=== PATIENT | female | born 1960 | race Caucasian/White ===

== ENCOUNTER 2020-08-27 13:12 | Outpatient (CLI) | payer MEDICARE, MEDICAID, SELFPAY ==
--- NOTE | ~2020-08-27 | DEXA_ITS ---
Bone Density Report Name: Shelby Ribera Age: 60 Sex: Female Ethnicity: White Date of : 1960 Indication: postmenopausal; height loss; history of glucocorticoids; prior fracture; asthma or emphysema; Referring Provider: Angelique, Johana Study: Bone densitometry was performed. Exam Date: August 27, 2020 Accession number: [id number] Bone Density: Region BMD T-score Z-score Classification AP Spine (L1-L4) 0.798 -2.3 -0.8 Osteopenia Femoral Neck (Left) 0.522 -3.0 -1.6 Osteoporosis Total Hip (Left) 0.608 -2.7 -1.7 Osteoporosis Total Hip Bilateral Avg 0.604 -2.8 -1.8 Osteoporosis Femoral Neck (Right) 0.513 -3.0 -1.7 Osteoporosis Total Hip (Right) 0.599 -2.8 -1.8 Osteoporosis World Health Organization criteria for BMD impression classify patients as: Normal (T-score at or above -1.0), Osteopenia (T-score between -1.0 and -2.5), or Osteoporosis (T-score at or below -2.5). 10-year Fracture Risk: FRAX not reported because: Some T-score for Spine Total or Hip Total or Femoral Neck at or below -2.5 Clinical Information Provided by Patient: Has had a low trauma fracture Smokes Has taken Glucocorticoids Has used the following medications: Vitamin D Has the following medical conditions: Asthma or Emphysema Patient maximum height was 67 Menopause Age: 54 No regular weight bearing exercise Drinks caffeinated beverages Onset of menses at age 12 Number of children 4 Impression: The patient has established osteoporosis, based on the Left Femoral Neck T-score and the existence of a prior fracture. The patient has risk factors, including: smoking, previous fracture, history of glucocorticoid therapy. Discussion: HIGH RISK OF FRACTURE. BONE DENSITY IS UNDESIRABLY LOW AT ONE OR MORE SKELETAL SITES, CONSISTENT WITH POSTMENOPAUSAL OSTEOPOROSIS. This patient's lowest T-score, in a patient who has previously fractured, meets the World Health Organization's (WHO) criteria for severe osteoporosis. In untreated patients, the risk of osteoporotic fracture increases approximately two-fold for each 1.0 SD decrease in T-score. Low bone density is not the only risk factor for fracture; also consider factors such as patient's age, frailty or poor health, risk of falling, risk of injury, previous osteoporotic fracture, family history of osteoporosis, cigarette smoking, low body weight, etc. Not everyone with low bone mineral density has osteoporosis; osteomalacia and other metabolic bone disorders should also be considered. Patients who have osteoporosis should be evaluated for specific diseases and conditions (secondary causes) that may cause or contribute to bone loss. The [place] Association [employer] Clinical Endocrinologists (AACE) and National Osteoporosis Foundation (NOF) recommend pharmacologic intervention for all postmenopausal women whose T-
== END 2020-08-27 13:13 | disposition home or self-care (01) ==
LOC: ANHIMG 13:20
PROVIDERS: PCP Registered Nurse; Visit Provider Registered Nurse
DX: M81.0 Age-related osteoporosis without current pathological fracture (principal); M85.88 Other specified disorders of bone density and structure, other site
CPT/HCPCS: 77080

== ENCOUNTER 2020-11-01 08:33 | Outpatient (CLI) | payer MEDICARE, MEDICAID, SELFPAY ==
--- NOTE | 2020-11-01 08:45 | ECHO_ITS ---
Patient Info Name: Shelby Ribera Age: 60 years : 1960 Gender: Female Ht: 66 in Wt: 107 lbs BSA: 1.49 m2 HR: 65 bpm BP: 122 / 77 mmHg Heart Rhythm: Sinus Rhythm Technical Quality: Good Exam Date: 11/01/2020 9:03 AM Exam Location: [facility] Patient Status: Outpatient Admit Date: 11/01/2020 Staff Ordering Physician: Indra Fields MD Florist Supplies Salesperson: Rojelio Otero RDCS Attending Provider: Indra Fields MD Referring Physician: Dnonie CHAVEZ; Exam Type: CA echo doppler color flow Study Info Indications R06.02 - Shortness of breath Complete two-dimensional, color flow and Doppler transthoracic echocardiogram is performed. History/Risk Factors Shortness of breath, COPD. Summary 1. Complete two-dimensional, color flow and Doppler transthoracic echocardiogram is performed. 2. Left ventricular chamber dimension is normal. 3. Left ventricular systolic function is normal, estimated at 60-65%. 4. The left ventricular diastolic function is grade I diastolic dysfunction. 5. E/e' 8 is minimally elevated. 6. There is trace mitral valve regurgitation. 7. There is trace tricuspid valve regurgitation. 8. No pulmonary hypertension, estimated pulmonary arterial systolic pressure is 30 mmHg. Left Ventricle E/e' 8 is minimally elevated. Left ventricular chamber dimension is normal. Left ventricular systolic function is normal, estimated at 60-65%. The left ventricular diastolic function is grade I diastolic dysfunction. Right Ventricle Right ventricular chamber dimension is normal. Right ventricular systolic function is normal. Left Atria Left atrial chamber dimension is normal. Right Atria Right atrial chamber dimension is normal. Aortic Valve The aortic valve is trileaflet. There is no aortic valve stenosis. There is no aortic valve regurgitation. Pulmonic Valve There is no pulmonic regurgitation. Mitral Valve There is no mitral valve stenosis. There is trace mitral valve regurgitation. Tricuspid Valve There is trace tricuspid valve regurgitation. No pulmonary hypertension, estimated pulmonary arterial systolic pressure is 30 mmHg. Pericardium/Pleural There is no pericardial effusion. Inferior Vena Cava Normal inferior vena cava with >50% collapse upon inspiration consistent with normal right atrial pressure, 5 mmHg. Aorta The aortic root size at the sinus of Valsalva is normal. Left Ventricular Outflow Tract Name Value Normal LVOT 2D LVOT Diameter 1.9 cm LVOT Doppler LVOT Peak Gradient 2 mmHg LVOT Mean Gradient 1 mmHg LVOT VTI 15 cm LVOT VTI/AV VTI Ratio 0.6 LVOT Stroke Volume 43 ml LVOT CO 2.9 l/min LVOT CI 2.0 l/min/m2 Mitral Valve Name Value Normal
== END 2020-11-01 08:34 | disposition home or self-care (01) ==
PROVIDERS: PCP Registered Nurse; Visit Provider Internal Medicine Critical Care Medicine
DX: J44.9 Chronic obstructive pulmonary disease, unspecified (principal); R06.02 Shortness of breath
CPT/HCPCS: 93306

== ENCOUNTER 2020-12-31 14:34 | Outpatient (CLI) | payer MEDICARE, MEDICAID, SELFPAY | END 2020-12-31 14:35 | disposition home or self-care (01) | LOC: ANHCOVIDVC 14:34 | PROVIDERS: PCP Registered Nurse | DX: Z23 Encounter for immunization (principal) | CPT/HCPCS: 0001A; 91300 ==

== ENCOUNTER 2021-01-21 11:50 | Outpatient (CLI) | payer MEDICARE, MEDICAID, SELFPAY | END 2021-01-21 11:51 | disposition home or self-care (01) | LOC: ANHCOVIDVC 11:50 | PROVIDERS: PCP Registered Nurse | DX: Z23 Encounter for immunization (principal) | CPT/HCPCS: 0002A; 91300 ==

== ENCOUNTER 2021-02-06 08:10 | Outpatient (CLI) | payer MEDICARE, MEDICAID, SELFPAY ==
[2021-02-06 08:45] VITALS: PULSE 78; O2SAT 95
[2021-02-06 08:50] VITALS: PULSE 101; O2SAT 87
[2021-02-06 08:52] VITALS: PULSE 100; O2SAT 90
[2021-02-06 09:00] VITALS: PULSE 80; O2SAT 95
--- NOTE | 2021-02-06 09:11 | HOMEO2EVAL ---
Evaluation was performed at [facility] Home Oxygen Evaluation RC: Home Oxygen (O2) Evaluation Start: 02/06/21 09:06 Freq: Status: Active Protocol: RPE Activity Type Activity Date Activity User E-Sign Co-Sign Detail Recorded Client Recorded Date Recorded By Document 02/06/21 08:45 JAYDEN [email or web address] 02/06/21 09:11 JAYDEN Document 02/06/21 08:50 JAYDEN [email or web address] 02/06/21 09:11 JAYDEN Document 02/06/21 08:52 JAYDEN [email or web address] 02/06/21 09:11 JAYDEN Document 02/06/21 09:00 JAYDEN [email or web address] 02/06/21 09:11 JAYDEN 02/06/21 02/06/21 02/06/21 08:45 08:50 08:52 Home O2 Evaluation Test Phase Resting Exercise Exercise Oxygen Delivery Room Air Room Air Nasal Cannula Oxygen Flow Rate (L/min) 1 Pulse Oximetry (90-100 %) 95 87 L 90 Pulse Rate (60-100 beats/min) 78 101 H 100 Activity Tolerance Excellent Rating of Perceived Dyspnea (PD) +3 Moderate Difficulty, But Can Continue Ambulation Distance (feet) 600 Home Oxygen Evaluation Comments Treatment Charges O2 Evaluation - Outpatient 02/06/21 09:00 Home O2 Evaluation Test Phase Resting Oxygen Delivery Room Air Oxygen Flow Rate (L/min) Pulse Oximetry (90-100 %) 95 Pulse Rate (60-100 beats/min) 80 Activity Tolerance Rating of Perceived Dyspnea (PD) Ambulation Distance (feet) Home Oxygen Evaluation Comments PT REQUIRES 1 LITER O2 WITH EXERTION Treatment Charges
--- NOTE | 2021-02-06 09:11 | PCRCNOTE ---
HOME O2 EVAL FAXED TO OFFICE STAFF. PT STATED SHE HAS BEEN WEARING 2.5 L AT NIGHT, 4 L WITH EXERTION, ROOM AIR AT REST. HAD A POC, BUT BATTERY ALWAYS DIES, WAS NEARLY WHEN SHE GOT HERE AND READY TO TEST. USED OUR TANK. NO WALKING AIDS USED.
== END 2021-02-06 08:11 | disposition home or self-care (01) ==
PROVIDERS: PCP Internal Medicine; Visit Provider Internal Medicine Pulmonary Disease
DX: J44.9 Chronic obstructive pulmonary disease, unspecified (principal)
CPT/HCPCS: 94618

== ENCOUNTER 2021-09-24 08:00 | Outpatient (CLI) | payer MEDICARE, MEDICAID, SELFPAY ==
--- NOTE | ~2021-09-24 | CT_ITS ---
EXAMINATION: CT lung screening DATE: 09/24/2021 09:08 INDICATION: Current smoker. TECHNIQUE: Computed tomography (CT) of the chest was performed without intravenous contrast. The dose -length product was 62.28 mGy-cm. Automated exposure control and iterative reconstruction technique w ere employed. COMPARISON: Chest x-ray dated 06/28/2016 FINDINGS: Heart size is normal. No significant pleural or pericardial effusion. No thoracic lymphaden opathy. Upper abdomen is unremarkable. No significant soft tissue abnormality. No acute osseous abnor mality. There is emphysema. No endobronchial lesions. There is left lower lobe atelectasis. There are a few s mall scattered 2-3 mm nodules, most likely benign. No pneumothorax. No focal airspace consolidation. IMPRESSION: 1. Lung-RADS category 2: Benign appearance or behavior. Continue annual screening with noncontrast lo w-dose chest CT in 12 months. Reviewed, dictated and finalized at location B. DING ATTENDANT IMPRESSION: 1. Lung-RADS category 2: Benign appearance or behavior. Continue annual screeni ng with noncontrast low-dose chest CT in 12 months.
[2021-09-24 08:30] VITALS: PULSE 59; O2SAT 95
[2021-09-24 08:35] VITALS: PULSE 70; O2SAT 86
[2021-09-24 08:40] VITALS: PULSE 72; O2SAT 88
[2021-09-24 08:45] VITALS: PULSE 74; O2SAT 91
[2021-09-24 08:55] VITALS: PULSE 60; O2SAT 94
--- NOTE | 2021-09-24 10:41 | HOMEO2EVAL ---
Evaluation was performed at [facility] Home Oxygen Evaluation RC: Home Oxygen (O2) Evaluation Start: 09/24/21 10:37 Freq: Status: Active Protocol: RPE Activity Type Activity Date Activity User E-Sign Co-Sign Detail Recorded Client Recorded Date Recorded By Document 09/24/21 08:30 DJO [email or web address] 09/24/21 10:40 DJO Document 09/24/21 08:35 DJO [email or web address] 09/24/21 10:40 DJO Document 09/24/21 08:40 DJO [email or web address] 09/24/21 10:40 DJO Document 09/24/21 08:45 DJO [email or web address] 09/24/21 10:40 DJO Document 09/24/21 08:55 DJO [email or web address] 09/24/21 10:40 DJO 09/24/21 09/24/21 09/24/21 08:30 08:35 08:40 Home O2 Evaluation Test Phase Resting Exercise Exercise Oxygen Delivery Room Air Room Air Nasal Cannula Oxygen Flow Rate (L/min) 1 Pulse Oximetry (90-100 %) 95 86 L 88 L Pulse Rate (60-100 beats/min) 59 L 70 72 Activity Tolerance Ambulation Distance (feet) Treatment Charges O2 Evaluation - Outpatient 09/24/21 09/24/21 08:45 08:55 Home O2 Evaluation Test Phase Exercise Resting Oxygen Delivery Nasal Cannula Oxygen Flow Rate (L/min) 2 Pulse Oximetry (90-100 %) 91 94 Pulse Rate (60-100 beats/min) 74 60 Activity Tolerance Good Ambulation Distance (feet) 500 Treatment Charges
== END 2021-09-24 08:01 | disposition home or self-care (01) ==
LOC: ANHPFT 08:02
PROVIDERS: PCP Internal Medicine; Visit Provider Internal Medicine Pulmonary Disease
DX: Z87.891 Personal history of nicotine dependence (principal)
CPT/HCPCS: 71271; 94618

== ENCOUNTER 2022-01-08 09:02 | Outpatient (CLI) | payer MEDICARE, MEDICAID, SELFPAY ==
--- NOTE | ~2022-01-08 | MM_ITS ---
EXAMINATION: MM screening [facility] BI w trever HISTORY: Screening mammogram TECHNIQUE: Craniocaudal and mediolateral oblique 3-D tomosynthesis images were obtained and synthetic 2-D images were generated. CAD analysis was submitted and interpreted. COMPARISON: No prior mammogram is available for comparison at this institution. BREAST PARENCHYMAL COMPOSITION: There are scattered areas of fibroglandular density. FINDINGS: RIGHT BREAST: An asymmetry is present in the middle third of the outer breast on the craniocaudal vie w. LEFT BREAST: Asymmetries are present in the middle third of the central breast on the craniocaudal vi ew. IMPRESSION: 1. Bilateral breast asymmetries which may represent the patient's baseline however no comparison is c urrently available. 2. Comparison with prior mammograms is necessary. BI-RADS Category 0: Incomplete: Needs comparison with prior mammograms. Reviewed, dictated and finalized at location A. IMPRESSION: 1. Bilateral breast asymmetries which may represent the patient's baseline mcnair molly no comparison is currently available. 2. Comparison with prior mammograms is necessary. BI-RADS Category 0: Incomplete: Needs comparison with prior mammograms.
== END 2022-01-08 09:03 | disposition home or self-care (01) ==
PROVIDERS: PCP Nurse Practitioner Family; Visit Provider Nurse Practitioner Family
DX: Z12.31 Encounter for screening mammogram for malignant neoplasm of breast (principal); R92.8 Other abnormal and inconclusive findings on diagnostic imaging of breast
CPT/HCPCS: 77063; 77067

== ENCOUNTER 2022-02-03 07:59 | Outpatient (CLI) | payer MEDICARE, MEDICAID, SELFPAY ==
--- NOTE | 2022-02-03 13:09 | P.PCNPFT_ITS ---
PFT Procedure Performed PFT Procedure Performed Spirometry with Pre/Post Bronchodilator Plethysmography (Lung Vol) Diffusing Cap (DLCO) Flow Vol Loop PFT Interpretation This is a pulmonary function test with pre and post-bronchodilator spirometry, plethysmography and diffusing capacity. The test was performed and results interpreted in accordance with the 2019 and 2005 ATS/ERS Task Force guidelines respectively using the Global Lung Function Initiative-2012 reference equations. Patient demonstrated good effort and cooperation. Reproducibility criteria were met. The quality of the pre bronchodilator spirometry maneuver was Grade A and post bronchodilator spirometry maneuver was Grade A. Findings: Spirometry: There is decreased maximal expiratory airflow at all lung volumes with a concave expiratory flow tracing. The contour the inspiratory flow tracing is normal. The pre bronchodilator FVC is 2.24 L, 70% predicted. The pre bronchodilator FEV1 is 0.66 L, 26% predicted. The pre bronchodilator FEV1: FVC ratio is 30%. The post bronchodilator FVC is 2.44 L, representing a 9% increase. The post bronchodilator FEV1 is 0.76 L, representing a 100 mL increase which corresponds to a 14% increase. The post bronchodilator FEV1: FVC ratio is 31%. Plethysmography: The total lung capacity is 7.75 L, 149% predicted. The functional residual capacity is 6.96 L, 236% predicted. The residual volume is 4.96 L the, 239% predicted. Diffusion capacity: The diffusing capacity unadjusted for hemoglobin and carboxyhemoglobin is 6.4, 30% predicted. The diffusing capacity adjusted for alveolar volume is 2.21, 51% predicted. Impression: There is a very severe obstructive abnormality without significant i mprovement after inhaling a single dose of albuterol as the absolute increase in the post bronchodilator FEV1 was less than 200 mL. The increase in residual volume is consistent with air trapping from an obstructive abnormality. Hyperinflation is present is demonstrated by the increase in functional residual capacity and total lung capacity and is consistent with an obstructive abnormality. The diffusing capacity unadjusted for hemoglobin and carboxyhemoglobin is severely decreased and remains moderately decreased when adjusted for alveolar volume. There are no prior studies in our lab for comparison
== END 2022-02-03 08:00 | disposition home or self-care (01) ==
LOC: ANHPFT 08:00
PROVIDERS: PCP Nurse Practitioner Family; Visit Provider Internal Medicine Pulmonary Disease
DX: R06.00 Dyspnea, unspecified (principal); R94.2 Abnormal results of pulmonary function studies
CPT/HCPCS: 94060; 94726; 94729

== ENCOUNTER 2022-02-24 07:17 | Outpatient (CLI) | payer MEDICARE, MEDICAID, SELFPAY ==
--- NOTE | 2022-03-03 18:03 | WPDSLEEPSTUD ---
Sleep Study Date of Study: 02/24/22 Ordering Provider: Santos Reza MD Interpreting Physician: Nydia Nickerson DO Sleep Study Type: Split Polysomnogram Height: 1.68 m Weight: 48.988 kg Body Mass Index: 17.4 Neck Circumference (inches): 13.8 [place]: 9 Reason for Sleep Study Nocturnal hypoxemia Sleep History The patient is a 61-year-old female with COPD with oxygen dependence, anxiety, osteoporosis, depression, and tobacco abuse that had a sleep study ordered by her senior inspector. the patient states that she has an upcoming lung transplant. The patient frequently awakens from sleep short breath. She frequently awakens at night with heartburn, belching or cough. She frequently snores loud enough others complain. He frequently has trouble sleeping when she has a cold. She rarely wakes gasping for air for throughout the night. She frequently has breathing problems at night observed by herself or others. She rarely sweats excessively at night. She rarely has heart palpitations or irregular heartbeats during the night. She occasionally falls asleep during the day but never while driving. She denies sleep paralysis and cataplexy. She frequently experiences vivid dreamlike scenes upon awakening or falling asleep. She rarely has nightmares. She frequently remembers her dreams. She occasionally has thoughts racing through her mind. She occasionally feels sad or depressed. She frequently has anxiety. She frequently has muscular tension. She rarely notices parts of her body jerk. She frequently kicks during the night. She occasionally has crawling and aching feelings in her legs. She occasionally has leg pain during the night. She rarely grinds her teeth during sleep but constantly awakens morning jaw pain. He is rarely bothered by pain during the day but occasionally awakened by pain during the night. She occasionally wakes up feeling stiff in. She frequently wakes up with sore achy muscles. She constantly wakes up with pain in the neck, spine and other joints. She goes to bed between 6 and 7:00 p.m. on both weekdays and weekends. It takes her 10-15 minutes to fall asleep. She wakes up 5 times throughout the night to urinate. The patient will get up and start her day whenever she wakes. She wakes up around 4:00 a.m. on both weekdays and weekends. She currently lives alone. She will consume caffeinated beverages within 2 hours of bedtime. She does not engage in physical exercise before bedtime. She will read and watch television before falling asleep. She drinks 6 caffeinated beverages throughout the day. She quit smoking cigarettes 11 months ago. She denies alcohol and recreational drug use. [facility] Past Medical History Medical History Anxiety COPD (chronic obstructive pulmonary disease) Emphysema of lung Osteoporosis Severe chronic obstructive pulmonary disease Surgical History Surgical History H/O breast biopsy H/O hernia repair H/O shoulder surgery History of appendectomy History of ear surgery Hx of tonsillectomy S/P laparoscopic procedure Family History Family History Mother COPD (chronic obstructive pulmonary disease) CHF (congestive heart failure) Emphysema of lung Father COPD (chronic obstructive pulmonary disease) Other Alzheimer disease Social History Social History Smoking packs per day: 0.50 Smoking cigarettes per day: 10.0 Years smoked: 45 Smoking pack-years: 22.50 Smoking status: Former smoker Tobacco type: cigarettes Alcohol intake: current Medications Home Medications Medication Instructions Recorded Confirmed Type albuterol sulfate 90 mcg/actuation 1 puff INHALATION Q4H PRN 08/08/20 12/30/21 History aerosol inhaler albute
[2022-03-03 18:10] VITALS: BMI 17.4
== END 2022-02-25 05:38 | disposition home or self-care (01) ==
LOC: ANHCSM 07:18
PROVIDERS: PCP Nurse Practitioner Family; Visit Provider Internal Medicine Pulmonary Disease
DX: G47.10 Hypersomnia, unspecified (principal); G47.34 Idiopathic sleep related nonobstructive alveolar hypoventilation; G47.33 Obstructive sleep apnea (adult) (pediatric)
CPT/HCPCS: 95811

== ENCOUNTER 2022-03-05 12:40 | Outpatient (CLI) | payer MEDICARE, MEDICAID, SELFPAY ==
[2022-03-05 13:11] LABS: Alveolar/Arterial O2 Gradient 45.7 mmHg; Base Excess ABG -0.2 mEq/l (+/-2.0); Carboxyhemoglobin 3.9 % THb (0-2.0); Fractional Inspired Oxygen 21 %; Methemoglobin ABG 0.2 %THb (0-1.5); Oxygen Content ABG 17.8 %vol (16.0-22.0); Oxygen Saturation ABG 93.6 % (95.0-100.0); PCO2 ABG 33.5 mmHg (35.0-45.0); PO2 ABG 63.9 mmHg (80.0-100.0); PO2 FiO2 Ratio Arterial Blood 3.04 %; Reduced Hemoglobin 6.9 %THb (0-5.0); Total Hemoglobin 14.2 g/dL (12.0-18.0); pH ABG 7.455 (7.350-7.450)
[2022-03-05 13:12] LABS: Device ROOM AIR; Site Drawn RIGHT BRACHIAL
--- NOTE | 2022-03-05 14:09 | PCRCNOTE ---
FAXED ABG RESULTS TO OFFICE STAFF, COPY ON FILE IN PFT LAB
== END 2022-03-05 12:41 | disposition home or self-care (01) ==
PROVIDERS: PCP Nurse Practitioner Family; Visit Provider Internal Medicine Pulmonary Disease
DX: J44.9 Chronic obstructive pulmonary disease, unspecified (principal)
CPT/HCPCS: 36600; 82375; 82805; 83050

== ENCOUNTER 2022-09-30 12:14 | Outpatient (CLI) | payer MEDICARE, MEDICAID, SELFPAY ==
--- NOTE | ~2022-09-30 | CT_ITS ---
EXAMINATION: CT lung screening DATE: 09/30/2022 12:33 INDICATION: Lung cancer screening TECHNIQUE: Computed tomography (CT) of the chest was performed without intravenous contrast. The dose -length product was 65.27 mGy-cm. Automated exposure control and iterative reconstruction technique w ere employed. COMPARISON: CT dated 09/24/2021 FINDINGS: No thoracic lymphadenopathy. There is mild atherosclerosis. Heart size normal. No significa nt pleural or pericardial effusion. There is severe emphysema. There is chronic left lower lobe atele ctasis/scarring. There is an irregular shaped 3 mm nodule in the left upper lobe, unchanged. There is a 2 mm left upper lobe nodule unchanged. There are a few additional small 2-3 mm nodules which are n ot significantly changed. Stable mild superior endplate compression deformity of T9. No acute bone or joint abnormality. No focal lytic lesions. IMPRESSION: 1. . Lung-RADS category 2: Benign appearance or behavior. Continue annual screening with noncontrast low-dose chest CT in 12 months. Reviewed, dictated and finalized at location A. TER ASSISTANT IMPRESSION: 1. . Lung-RADS category 2: Benign appearance or behavior. Continue annual scree jamaal with noncontrast low-dose chest CT in 12 months.
== END 2022-09-30 12:15 | disposition home or self-care (01) ==
LOC: ANHIMG 12:16
PROVIDERS: PCP Family Medicine; Visit Provider Internal Medicine Pulmonary Disease
DX: Z12.2 Encounter for screening for malignant neoplasm of respiratory organs (principal); Z87.891 Personal history of nicotine dependence
CPT/HCPCS: 71271

== ENCOUNTER 2023-03-09 09:30 | Outpatient (CLI) | payer MEDICARE, MEDICAID, SELFPAY ==
--- NOTE | ~2023-03-09 | MM_ITS ---
EXAMINATION: MM screening [facility] BI w trever HISTORY: Screening mammogram TECHNIQUE: Craniocaudal and mediolateral oblique 3-D tomosynthesis images were obtained and synthetic 2-D images were generated. CAD analysis was submitted and interpreted. COMPARISON: 01/08/2022, 10/16/2019, 10/14/2018 BREAST PARENCHYMAL COMPOSITION: There are scattered areas of fibroglandular density. FINDINGS: No suspicious mass, calcification, or architectural distortion are identified in either jamal ast to suggest malignancy. There has been no suspicious interval change. IMPRESSION: 1. No mammographic evidence of malignancy. 2. Recommend routine screening mammography in one year. BI-RADS Category 1: Negative Reviewed, dictated and finalized at location A.
== END 2023-03-09 09:31 | disposition home or self-care (01) ==
PROVIDERS: PCP Family Medicine; Visit Provider Family Medicine
DX: Z12.31 Encounter for screening mammogram for malignant neoplasm of breast (principal)
CPT/HCPCS: 77063; 77067

== ENCOUNTER 2023-04-06 14:47 | Outpatient (CLI) | payer MEDICARE, MEDICAID, SELFPAY ==
--- NOTE | ~2023-04-06 | CT_ITS ---
EXAMINATION: CT diagnostic chest wo con DATE: 04/06/2023 15:13 INDICATION: Solitary pulmonary nodule TECHNIQUE: Computed tomography (CT) of the chest was performed without intravenous contrast. The dose -length product was 58.87 mGy-cm. Automated exposure control and iterative reconstruction technique w ere employed. COMPARISON: CT dated 09/30/2022 FINDINGS: There is emphysema. There is a new 1.5 x 0.8 cm nodule left upper lobe, image 21. No pneumo thorax. No endobronchial lesions. Stable small 2-3 mm scattered pulmonary nodules. No thoracic lympha denopathy. Heart size normal. Mild superior endplate compression deformity of 9. Mild thoracic spondy losis. IMPRESSION: 1. New left upper lobe nodule measuring 1.5 cm, suspicious for bronchogenic carcinoma. Recommend perc utaneous biopsy or pet/CT scan. Reviewed, dictated and finalized at location [] IMPRESSION: 1. New left upper lobe nodule measuring 1.5 cm, suspicious for bronchogenic car cinoma. Recommend percutaneous biopsy or pet/CT scan.
== END 2023-04-06 14:48 | disposition home or self-care (01) ==
PROVIDERS: PCP Family Medicine; Visit Provider Internal Medicine Pulmonary Disease
DX: R91.1 Solitary pulmonary nodule (principal)
CPT/HCPCS: 71250

== ENCOUNTER 2023-04-26 10:27 | Emergency (ER) | payer MEDICARE, MEDICAID, SELFPAY ==
--- NOTE | 2023-04-26 10:32 | ED.GENADULT ---
HPI - General Adult General Chief complaint: Upper Respiratory Infection Stated complaint: Headache Time Seen by Provider: 04/26/23 10:35 Source: patient, RN notes reviewed and old records reviewed Mode of arrival: ambulatory Limitations: no limitations History of Present Illness HPI narrative: 63-year-old female with a significant medical history including Skin cancer, COPD, having a lung biopsy to rule out lung cancer, anxiety. presents to the [facility] with left-sided headache x3 days. Patient states the pain is 8/10, worst headache of her life which she is taking Tylenol, Excedrin, slept yesterday in a cool dark room. Unable to get rid of the headache. Denies any fevers, nausea, vomiting, diarrhea. Denies any chest pain or abdominal pain. Has chronic weakness in her arms that she has seat physical therapy for. Currently on exam no neurologic deficits Unable to reproduce pain with palpation of the left head, sinus Onset (ago): day(s) (3) Location: head (Left-sided) Related Data Allergies Allergy/AdvReac Type Severity Reaction Status Date / Time codeine AdvReac Intermediate Nausea Verified 04/26/23 10:52 Penicillins AdvReac Intermediate Nausea and Verified 04/26/23 10:52 Vomiting erythromycin base AdvReac Itching Verified 04/26/23 10:52 Review of Systems Review of Systems: All systems reviewed & are unremarkable except as noted in HPI and below Constitutional: Constitutional: Reports no additional constitutional complaints Eyes: Eyes: Reports no additional eye complaints ENT: Reports system reviewed and no additional complaints, except as documented Cardiovascular: Cardiovascular: Reports no additional cardiovascular complaints, Denies chest pain and Denies dyspnea Respiratory: Respiratory: Reports no additional respiratory complaints, Denies chest congestion, Denies cough and Denies dyspnea Gastrointestinal: Gastrointestinal: Reports no additional gastrointestinal complaints, Denies abdominal pain, Denies nausea and Denies vomiting Musculoskeletal: Musculoskeletal: Reports no additional musculoskeletal complaints Integumentary/Breasts: Skin/Breast: Reports system reviewed and no additional complaints, except as docu Neurologic: Reports as per HPI, Denies Neuro-related abnormal movements, Denies Abnormal speech present, Denies dizziness, Denies syncope, Reports headache(s), Denies focal weakness, Denies loss of vision, Denies memory loss, Denies numbness, Reports tingling and Reports paresthesias Psychiatric: Psychiatric: Reports no additional psychiatric complaints Allergic/Immunologic: Allergic/Immunologic: Reports no additional allergic/immunologic complaints [facility] Past Medical History Medical History (Updated 04/26/23 @ 11:12 by Tanisha Tinoco APRN) Anxiety Cholesteatoma left ear per patient COPD (chronic obstructive pulmonary disease) Emphysema of lung Osteoporosis Severe chronic obstructive pulmonary disease Surgical History Surgical History H/O breast biopsy H/O hernia repair H/O shoulder surgery History of appendectomy History of ear surgery Hx of tonsillectomy S/P laparoscopic procedure Family History Family History Mother COPD (chronic obstructive pulmonary disease) CHF (congestive heart failure) Emphysema of lung Father COPD (chronic obstructive pulmonary disease) Other Alzheimer disease Social History Social History Smoking packs per day: 0.50 Smoking cigarettes per day: 10.0 Years smoked: 45 Smoking pack-years: 22.50 Smoking status: Former smoker Tobacco type: cigarettes Alcohol intake: current Substance use: never Living arrangements: alone Occupation/Education: retired Gender identity (if verbalized by the patient): Female Comments At the time of my signature, I reviewed and agre
[2023-04-26 10:35] VITALS: BP 137/69; PULSE 78; RESP 18; TEMP 36.5; O2SAT 92
== END 2023-04-26 10:55 | disposition short-term general hospital (02) ==
LOC: EXPTROY 10:29
PROVIDERS: Emergency Provider Nurse Practitioner; PCP Family Medicine
DX: R51.9 Headache, unspecified (principal); J44.9 Chronic obstructive pulmonary disease, unspecified; Z85.828 Personal history of other malignant neoplasm of skin
CPT/HCPCS: 99212; G0463

== ENCOUNTER 2023-04-26 11:13 | Emergency (ER) | payer MEDICARE, MEDICAID, SELFPAY ==
--- NOTE | ~2023-04-26 | CT_ITS ---
EXAMINATION: CT brain wo con DATE: 04/26/2023 11:37 INDICATION: Left-sided temporal headache. TECHNIQUE: Computed tomography (CT) of the head was performed without intravenous contrast. The mA wa s adjusted according to patient size. Iterative reconstruction technique was employed. The dose-lengt h product was 681.00 mGy-cm. COMPARISON: Head CT 06/28/2016 FINDINGS: There is no intracranial hemorrhage, acute infarction, or abnormal intracranial mass lesion . The ventricles are normal in size. The orbits are normal. There is mild mucosal thickening in the p aranasal sinuses. There are changes of left mastoidectomy. IMPRESSION: 1. Normal brain. Reviewed, dictated and finalized at location A. IMPRESSION: 1. Normal brain.
[2023-04-26 11:19] VITALS: BP 143/77; PULSE 77; RESP 16; TEMP 36.8; O2SAT 94
--- NOTE | 2023-04-26 12:16 | ED.GENADULT ---
HPI - General Adult General Chief complaint: Headache Stated complaint: left temporal headache Time Seen by Provider: 04/26/23 11:21 Source: patient Mode of arrival: ambulatory Limitations: no limitations History of Present Illness HPI narrative: This is a 63-year-old female who presents to the ED from urgent care referral with chief complaint of left-sided headache beginning 3 days ago. She states that she does not have headaches very often. She reports it is located in the left temporal area and radiates somewhat posteriorly. Denies any associated head injury. Denies numbness, weakness, other neurologic symptoms. Denies vision changes, fevers, chills, neck pain or stiffness. Denies thunderclap onset. Related Data Allergies Allergy/AdvReac Type Severity Reaction Status Date / Time codeine AdvReac Intermediate Nausea Verified 04/26/23 12:22 Penicillins AdvReac Intermediate Nausea and Verified 04/26/23 12:22 Vomiting erythromycin base AdvReac Itching Verified 04/26/23 12:22 [facility] Past Medical History Medical History (Updated 04/26/23 @ 13:43 by Bobby Cardoso PA-C) Anxiety Cholesteatoma left ear per patient COPD (chronic obstructive pulmonary disease) Emphysema of lung Osteoporosis Severe chronic obstructive pulmonary disease Surgical History Surgical History H/O breast biopsy H/O hernia repair H/O shoulder surgery History of appendectomy History of ear surgery Hx of tonsillectomy S/P laparoscopic procedure Family History Family History Mother COPD (chronic obstructive pulmonary disease) CHF (congestive heart failure) Emphysema of lung Father COPD (chronic obstructive pulmonary disease) Other Alzheimer disease Social History Social History Smoking packs per day: 0.50 Smoking cigarettes per day: 10.0 Years smoked: 45 Smoking pack-years: 22.50 Smoking status: Former smoker Tobacco type: cigarettes Alcohol intake: current Substance use: never Living arrangements: alone Occupation/Education: retired Gender identity (if verbalized by the patient): Female Exam Narrative: GENERAL: Well-appearing, well-nourished, and in no acute distress. HEAD: Normocephalic, atraumatic. Palpating the left temporal area relieves her pain. EYES: PERRLA and EOMI. ENT: Nares clear, no rhinorrhea or epistaxis. Mucous membranes moist. Oropharynx without tonsillar hypertrophy exudate or other lesions. NECK: Supple. No adenopathy or masses. CHEST: No respiratory distress. Clear to auscultation. No wheezes rales or rhonchi HEART: Regular rate and rhythm. No murmur heard. Normal peripheral pulses. ABDOMEN: Soft, nontender, nondistended, normal active bowel sounds. MSK: Normal range of motion. No edema. SKIN: Warm, dry, no rash. NEURO: Alert and oriented x3. No focal deficits. PSYCH: Normal mood and affect. Course Vital Signs Vital signs: Vital Signs Temperature 98.2 F 04/26/23 11:19 Pulse Rate 77 04/26/23 11:19 Respiratory Rate 16 04/26/23 11:19 Blood Pressure 143/77 H 04/26/23 11:19 Pulse Oximetry 94 04/26/23 11:19 Temperature 98.2 F 04/26/23 11:19 Pulse Rate 66 04/26/23 13:25 Respiratory Rate 17 04/26/23 13:25 Blood Pressure 125/72 04/26/23 13:25 Pulse Oximetry 97 04/26/23 13:25 Medical Decision Making MDM Narrative Medical decision making narrative: This is a 63-year-old female who presents to the ED with chief complaint of left-sided headache beginning 3 days ago. Vitals are normal. Exam is unremarkable. Neurologic exam fully intact. Palpation of the left denominational actually helps relieve her headache. CT of the brain is without acute findings. No masses. She has no red flag headache signs or symptoms other than age. Great symptomatic improvement with fluids and Toradol
[2023-04-26] MEDS: SODIUM CHLORIDE 0.9% IV 1,000 ML 999 ML IV CONT (12:25)
[2023-04-26] MEDS: KETOROLAC 30 MG/ML VIAL (*BKC) IV PUSH (12:25)
[2023-04-26 12:34] LABS: Basophils Absolute Auto 0.1 K/mm3 (0.0-0.1); Basophils Percent Auto 1.1 % (0.2-1.2); Eosinophils Absolute Auto 0.4 K/mm3 (0-0.3); Eosinophils Percent Auto 5.3 % (0-4.4); Hemoglobin 13.2 g/dL (12.0-15.0); Immature Granulocyte Absolute 0.02 K/mm3 (0.00-0.031); Immature Granulocyte Percent A 0.2 % (0-0.5); Lymphocytes Absolute Auto 2.92 K/mm3 (0.9-3.2); Lymphocytes Percent Auto 36.1 % (18.3-44.2); Mean Corpuscular Hemoglobin 30.2 pg (26-34); Mean Corpuscular Volume 91.5 fl (80-100); Mean Platelet Volume 10.3 fl (7.4-10.4); Monocytes Absolute Auto 0.7 K/mm3 (0.1-0.6); Monocytes Percent Auto 8.7 % (2.6-8.5); Neutrophils Absolute Auto 3.9 K/mm3 (1.3-6.7); Neutrophils Percent Auto 48.6 % (45.5-73.1); Platelet Count Result 275 k/mm3 (150-375); Red Blood Count 4.37 M/mm3 (4.2-5.4); Red Cell Distribution Width 13.6 % (11.5-14.5); White Blood Count 8.1 K/mm3 (4.5-10.0)
[2023-04-26 12:48] LABS: Alanine Aminotransferase 16 U/L (6-35); Albumin Level 3.8 g/dL (3.5-5.1); Alkaline Phosphatase 50 U/L (38-126); Anion Gap 5 mmol/L (8-16); Aspartate Amino Transferase 23 U/L (14-36); Bilirubin,Total 0.4 mg/dL (0.2-1.3); Blood Urea Nitrogen 6 mg/dL (7-17); Calcium 8.3 mg/dL (8.4-10.2); Carbon Dioxide 33 mmol/L (22-30); Chloride 103 mmol/L (98-107); Estimated CRCL calculation 60 ml/min; Estimated Glomerular Filt Rate > 60; Glucose 87 mg/dL (65-110); Potassium 3.9 mmol/L (3.4-5.0); Sodium 141 mmol/L (137-145)
[2023-04-26 13:25] VITALS: BP 125/72; PULSE 66; RESP 17; O2SAT 97
== END 2023-04-26 14:00 | disposition home or self-care (01) ==
PROVIDERS: Emergency Provider Physician Assistant; PCP Family Medicine
DX: R51.9 Headache, unspecified (principal); J43.9 Emphysema, unspecified; M81.0 Age-related osteoporosis without current pathological fracture; Z87.891 Personal history of nicotine dependence
CPT/HCPCS: 36415; 70450; 80053; 85025; 96361; 96374; 99284; J1885; J7030

== ENCOUNTER 2023-05-04 08:47 | Outpatient (CLI) | payer MEDICARE, MEDICAID, SELFPAY ==
[2023-04-26 10:54] VITALS: BMI 17.4
--- NOTE | 2023-04-26 10:54 | PC.NURSE ---
Pre Radiology instructions Report to the outpatient [facility] on date 05/04/23 at time 0900 for procedure Time: 1100. YOU MAY BE MONITORED AT HOSPITAL FOR UP TO 4 HOURS AFTER YOUR PROCEDURE. A visitor will be allowed to accompany the patient into the hospital. You and your visitor will be asked to self-screen and do not enter if you have any COVID symptoms. A mask is OPTIONAL within the hospital. Patients are to have no food or drink 6 hours prior to procedure time Driving will be restricted after the procedure, you must have a person to drive you home. Labs will be drawn in preop area and once reviewed, you will be taken to radiology area for procedure. When the procedure is completed, you will be taken to outpatient where you will be monitored for several hours. You may have one visitor in this area. Other than holding anti-coagulants, patient may take other medication(s) as scheduled. Prior to your appointment date patients are instructed to hold anti-coagulants after discussing with ordering provider to stop. If unable to discontinue anti-coagulants please notify radiologist. ? No aspirin or warfarin (Coumadin) for 7 days prior to the procedure. ? No clopidogrel (Plavix), ticagrelor (Brilinta), prasugrel (Effient) or dabigatran (Pradaxa) for 5 days prior to the procedure. ? No rivaroxaban (Xarelto), apixaban (Eliquis), dipyridamole (Aggrenox or Persantine) or cilostazol (Pletal) for 2 days prior to the procedure. Medications to discontinue per physician: N/A Date to take last dose: N/A Please leave all valuables, including medications, at home the day of procedure. The hospital will not accept responsibility for valuables. Wear comfortable, loose fitting clothing.? Follow any additional instructions given to you from ordering provider. Telephone instructions given to KEATON JACKKILala HIDALGO and asked if any additional questions and then verbalized understanding. Patient advised to call scheduling provider office or registration scheduling [phone] if any additional questions.
[2023-05-04] VITALS (12 sets, daily range): BP systolic 80–139; BP diastolic 45–88; PULSE 57–86; RESP 16–20; TEMP 37.1; O2SAT 90–100
--- NOTE | ~2023-05-04 | XR_ITS ---
EXAMINATION: XR chest 1V portable DATE: 05/04/2023 12:46 INDICATION: Pneumothorax post percutaneous left lung biopsy. TECHNIQUE: frontal view of the chest was obtained. COMPARISON: Chest radiograph dated 05/04/2023 at 12:05 PM FINDINGS: Emphysema. Some skin folds project over the lateral left mid to lower lung zones. Again seen is a sma ll left apical pneumothorax which does not appear changed in size since the earlier study. Some of th e pulmonary hemorrhage in the left upper lobe has decreased. No new airspace opacities, pleural effus ion or right-sided pneumothorax. Heart size is normal. Lateral plate and screw fixation of an old fra cture at the left humeral neck. IMPRESSION: 1. Unchanged small iatrogenic left apical pneumothorax. 2. Interval decrease in small amount of post biopsy pulmonary hemorrhage in the left upper lobe. Reviewed, dictated and finalized at location A.
--- NOTE | ~2023-05-04 | XR_ITS ---
EXAMINATION: XR chest 1V portable DATE: 05/04/2023 14:26 INDICATION: Pneumothorax post percutaneous left lung biopsy TECHNIQUE: frontal view of the chest was obtained. COMPARISON: Chest radiograph dated 05/04/2023 at 12:36 PM and 12:05 PM FINDINGS: Interval decrease in size of a small left apical pneumothorax. Mild opacities in the left upper lung zone corresponding to the biopsied nodule, mild associated atelectasis and small amount of postbiopsy pulmonary hemorrhage. No other airspace opacities, pleural effusion or right-sided pneumothorax. Hea rt size and mediastinal silhouette are normal. Internal fixation of a proximal left humeral fracture. IMPRESSION: 1. Decreasing small left apical pneumothorax with mild atelectasis and likely small amount of residua l pulmonary hemorrhage in the left upper lobe. Reviewed, dictated and finalized at location A. IMPRESSION: 1. Decreasing small left apical pneumothorax with mild atelectasis and likely s mall amount of residual pulmonary hemorrhage in the left upper lobe.
--- NOTE | ~2023-05-04 | CT_ITS ---
EXAMINATION: CT biopsy lung w/imaging DATE: 05/04/2023 12:08 INDICATION: Solitary left upper lobe pulmonary nodule TECHNIQUE: The procedure including the risks and benefits was discussed with the patient. Risks discu ssed included infection, approximately 1/20 risk of symptomatic hemorrhage beyond mild hemoptysis, ap proximately 1/3 risk of pneumothorax, and approximately 1/10 risk of pneumothorax severe enough to wa rrant chest tube placement. The patient understood the risks and agreed to proceed. The patient was p laced prone. The skin overlying the paraspinal right posterior chest was prepped and draped in steri le fashion. Anesthetic was administered with 1% lidocaine subcutaneously. A 19 gauge outer needle w as advanced under CT guidance to the lesion of interest. A 20 gauge core biopsy needle was then used to obtain 5 core biopsy specimens. The needle was removed and the entry site was cleaned and dressed. There were no immediate complications. The dose-length product was 111.33 mGy-cm. FINDINGS: CT images demonstrate the outer needle tip adjacent to a 1.3 cm right upper lobe pulmonary nodule. IMPRESSION: 1. Successful CT-guided biopsy of a 1.3 cm right upper lobe pulmonary nodule. Reviewed, dictated and finalized at location A.
--- NOTE | ~2023-05-04 | XR_ITS ---
Portable chest x-ray Comparison: 06/28/2016 Clinical History: Postbiopsy Findings: There is left apical pneumothorax. Patchy airspace disease in the left upper lobe is paula tible with postbiopsy hemorrhage. Right lung clear. There is probable underlying COPD. Cardiomediast inal silhouette is stable. Bones and soft tissues are unremarkable. Impression: Left apical pneumothorax. Postbiopsy hemorrhage in the left upper lobe. Reviewed, dictated and finalized at location . Impression: Left apical pneumothorax. Postbiopsy hemorrhage in the left upper lobe.
--- NOTE | ~2023-05-04 | XR_ITS ---
EXAMINATION: XR chest 1V portable DATE: 05/04/2023 15:47 INDICATION: Left pneumothorax post percutaneous left lung biopsy. TECHNIQUE: frontal view of the chest was obtained. COMPARISON: Chest radiograph dated 05/04/2023 at 2:23 PM FINDINGS: Continued gradual decrease in size of a small left apical pneumothorax. Mild opacities in the left up per lobe likely representing associated atelectasis as well as the biopsied pulmonary nodule. No new airspace opacities, pleural effusion or right-sided pneumothorax. The cardiomediastinal silhouette is normal. Internal fixation of a proximal left humeral fracture. IMPRESSION: 1. Continued decrease in a small iatrogenic left apical pneumothorax post. These biopsy of a left upp er lobe nodule which is concerning for malignancy. Reviewed, dictated and finalized at location A. IMPRESSION: 1. Continued decrease in a small iatrogenic left apical pneumothorax post. Thes e biopsy of a left upper lobe nodule which is concerning for malignancy.
[2023-05-04 09:26] LABS: Mean Platelet Volume 10.6 fl (7.4-10.4); Platelet Count Result 321 k/mm3 (150-375)
[2023-05-04 09:41] LABS: Prothrombin Time 13.4 Seconds (11.1-14.7)
[2023-05-04] MEDS: LACTATED RINGERS 1,000 ML 999 ML IV CONT (12:30)
--- NOTE | 2023-05-04 12:46 | SUR.PHASEII ---
1220 dr rodriguez called to bedside due to patient being hypotensive(80/45) and feeling hot. order given to hand lactated ringers wide open for bp. fan placed on patient feeling better. pt has a small pneumothorax 1230 bp(100/63) on 2L nc-95% 1235 chest xray done per dr rodriguez
[2023-05-04] MEDS: MORPHINE SULFATE (*CRX) 4 MG/ML INJ 1 MG IV PUSH (13:29)
--- NOTE | 2023-05-04 17:31 | SUR.PHASEII ---
1600 dr rodriguez at bedside to talk to patient and family. chest xray is better, okay for discharge per dr rodriguez
== END 2023-05-04 16:15 | disposition home or self-care (01) ==
PROVIDERS: PCP Family Medicine; Referring Provider Internal Medicine Pulmonary Disease; Visit Provider Radiology Diagnostic Radiology
PROC: BB24ZZZ Computerized Tomography (CT Scan) of Bilateral Lungs (ICD-10-PCS; CPT 32408; principal; 2023-05-04 11:00)
DX: R91.1 Solitary pulmonary nodule (principal)
CPT/HCPCS: 32408; 36415; 71045; 85049; 85610; 88305; J2270; J7120

== ENCOUNTER 2023-05-06 17:03 | Emergency (ER) | payer MEDICARE, MEDICAID, SELFPAY ==
[2023-05-06] VITALS (24 sets, daily range): BP systolic 95–130; BP diastolic 47–105; PULSE 61–86; RESP 11–28; TEMP 36.6; O2SAT 87–100
--- NOTE | ~2023-05-06 | XR_ITS ---
EXAMINATION: XR chest 2V DATE: 05/06/2023 18:48 INDICATION: Hemoptysis. TECHNIQUE: Frontal and lateral views of the chest were obtained. COMPARISON: Chest single view 05/04/2023, CT 05/04/2023 FINDINGS: The lungs are hyperexpanded with lucencies, consistent with emphysema. There is a nodule in left lung upper lobe. There are reticular opacities in left upper lobe. There is a small left pneumo thorax. There is a small left pleural effusion. The heart size is normal. There is plate and screw fi xation of proximal left humerus. IMPRESSION: 1. Nodule in left lung upper lobe suspicious for primary bronchogenic carcinoma. 2. Stable small left pneumothorax. 3. Interstitial opacities in left lung upper lobe with interval improvement, consistent with hemorrha ge. 4. Small left pleural effusion. 5. Emphysema. Reviewed, dictated and finalized at location E. IMPRESSION: 1. Nodule in left lung upper lobe suspicious for primary bronchogenic carcinoma . 2. Stable small left pneumothorax. 3. Interstitial opacities in left lung upper lobe with interval improvement, co nsistent with hemorrhage. 4. Small left pleural effusion. 5. Emphysema.
--- NOTE | ~2023-05-06 | CT_ITS ---
EXAMINATION:CT diagnostic chest w con DATE: 05/06/2023 22:48 INDICATION: Hemoptysis. TECHNIQUE: Computed tomography (CT) of the chest was performed with 75 mL Omnipaque 350 intravenous c ontrast. Automated exposure control and iterative reconstruction technique were employed. The dose-le ngth product (DLP) was 137.74 mGy-cm. COMPARISON: Chest CT 04/06/2023, 05/04/2023 FINDINGS: There is severe emphysema. There is a small left hydropneumothorax. There is mild atelectas is bilaterally. There is a 13 mm nodule in left lung upper lobe. There are reticular opacities and ai rspace opacities in left upper lobe. The heart size is normal. There is a small pericardial effusion. There is an 8 mm cyst in the liver. There is severe cervical spondylosis and mild thoracic spondylos is. There is mild chronic anterior wedging of T9 vertebral body. IMPRESSION: 1. 13 mm nodule in left lung upper lobe suspicious for primary bronchogenic carcinoma. Correlate with biopsy results. 2. Small left hydropneumothorax. 3. Airspace opacities and reticular opacities in left lung upper lobe, consistent with postbiopsy hem orrhage. 4. Severe emphysema. 5. Small pericardial effusion. Reviewed, dictated and finalized at location E. IMPRESSION: 1. 13 mm nodule in left lung upper lobe suspicious for primary bronchogenic car cinoma. Correlate with biopsy results. 2. Small left hydropneumothorax. 3. Airspace opacities and reticular opacities in left lung upper lobe, consiste nt with postbiopsy hemorrhage. 4. Severe emphysema. 5. Small pericardial effusion.
[2023-05-06 17:53] LABS: Basophils Absolute Auto 0.1 K/mm3 (0.0-0.1); Basophils Percent Auto 1.2 % (0.2-1.2); Eosinophils Absolute Auto 0.6 K/mm3 (0-0.3); Eosinophils Percent Auto 6.2 % (0-4.4); Hematocrit 40.4 % (37.0-47.0); Hemoglobin 13.1 g/dL (12.0-15.0); Immature Granulocyte Absolute 0.02 K/mm3 (0.00-0.031); Immature Granulocyte Percent A 0.2 % (0-0.5); Lymphocytes Absolute Auto 3.78 K/mm3 (0.9-3.2); Lymphocytes Percent Auto 41.6 % (18.3-44.2); Mean Corpuscular HGB Conc 32.4 g/dl (32-36); Mean Corpuscular Volume 92.7 fl (80-100); Mean Platelet Volume 10.7 fl (7.4-10.4); Monocytes Absolute Auto 0.9 K/mm3 (0.1-0.6); Monocytes Percent Auto 9.5 % (2.6-8.5); Neutrophils Absolute Auto 3.8 K/mm3 (1.3-6.7); Neutrophils Percent Auto 41.3 % (45.5-73.1); Platelet Count Result 338 k/mm3 (150-375); Red Blood Count 4.36 M/mm3 (4.2-5.4); Red Cell Distribution Width 13.6 % (11.5-14.5); White Blood Count 9.1 K/mm3 (4.5-10.0)
[2023-05-06 18:03] LABS: INR 0.9; Prothrombin Time 12.6 Seconds (11.1-14.7)
[2023-05-06 18:04] LABS: Partial Thromboplastin Time 32.8 SECONDS (22.3-36.8)
[2023-05-06 18:07] LABS: Alanine Aminotransferase 17 U/L (6-35); Albumin Level 3.9 g/dL (3.5-5.1); Alkaline Phosphatase 41 U/L (38-126); Anion Gap 1 mmol/L (8-16); Aspartate Amino Transferase 23 U/L (14-36); Bilirubin,Total 0.3 mg/dL (0.2-1.3); Blood Urea Nitrogen 11 mg/dL (7-17); Calcium 8.8 mg/dL (8.4-10.2); Carbon Dioxide 32 mmol/L (22-30); Chloride 104 mmol/L (98-107); Estimated CRCL calculation 57 ml/min; Estimated Glomerular Filt Rate > 60; Glucose 101 mg/dL (65-110); Potassium 4.1 mmol/L (3.4-5.0); Sodium 137 mmol/L (137-145)
[2023-05-06] MEDS: IPRATROPIUM BR 0.02% INH SOLN 0.5 MG/2.5 ML VIAL 1 MG INHALATION (20:12)
[2023-05-06] MEDS: ALBUTEROL SULFATE NEB 2.5 MG/3 ML INH 15 MG INHALATION (20:12)
[2023-05-06 20:14] LABS: Glucose Point of Care 99 mg/dl (65-105)
[2023-05-06] MEDS: predniSONE 20 MG TABLET 40 MG PO (20:26)
--- NOTE | 2023-05-06 23:02 | ED.GENADULT ---
HPI - General Adult General Chief complaint: Unspecified Stated complaint: LUNG BX 2D AGO, HEMOPTYSIS Time Seen by Provider: 05/06/23 19:55 History of Present Illness HPI narrative: Patient with history of recent lung biopsy for suspected lung cancer, COPD, bronchitis recently treated with course of antibiotics, presents with coming up blood-tinged sputum since she had a biopsy 2 days ago. She is also having some shortness of breath. Related Data Allergies Allergy/AdvReac Type Severity Reaction Status Date / Time codeine AdvReac Intermediate Nausea Verified 05/04/23 09:06 Penicillins AdvReac Intermediate Nausea and Verified 05/04/23 09:06 Vomiting erythromycin base AdvReac Itching Verified 05/04/23 09:06 Review of Systems Review of Systems: CONST: No fever. HEENT: No sore throat C/V: No chest pain RESP: Cough with blood GI: No abdominal pain : No dysuria. M/S: No joint pain. SKIN: No rash. NEURO: [No headache or focal numbness or weakness] PSYCH: [No depression] [facility] Past Medical History Medical History Anxiety Cholesteatoma left ear per patient COPD (chronic obstructive pulmonary disease) Emphysema of lung Osteoporosis Severe chronic obstructive pulmonary disease Surgical History Surgical History H/O breast biopsy H/O hernia repair H/O shoulder surgery History of appendectomy History of ear surgery Hx of tonsillectomy S/P laparoscopic procedure Family History Family History Mother COPD (chronic obstructive pulmonary disease) CHF (congestive heart failure) Emphysema of lung Father COPD (chronic obstructive pulmonary disease) Other Alzheimer disease Social History Social History Smoking packs per day: 0.50 Smoking cigarettes per day: 10.0 Years smoked: 45 Smoking pack-years: 22.50 Smoking status: Former smoker Tobacco type: cigarettes Alcohol intake: current Substance use: never Living arrangements: alone Occupation/Education: retired Gender identity (if verbalized by the patient): Female Sexual Orientation (if Verbalized by the Patient): Straight or Heterosexual Exam Narrative: EXAMINATION OF ORGAN SYSTEMS/BODY AREAS: Constitutional: Vital signs per nursing GENERAL: Appears dyspneic HEAD: Normal with no signs of head trauma. EYES: EOMI, conjunctiva normal ENT: Hearing grossly intact LUNGS: Labored respirations with diminished breath sounds and wheezing extensively HEART: [Regular rate and rhythm] ABD: [Soft], [nontender to palpation] EXT: Normal range of motion SKIN: [No rashes or lesions.] NEURO: [Alert and oriented x 3. No gross focal sensory or strength deficits.] PSYCH: Normal affect Course Vital Signs Vital signs: Vital Signs Temperature 98 F 05/06/23 17:34 Pulse Rate 82 05/06/23 17:34 Respiratory Rate 16 05/06/23 17:34 Blood Pressure 95/47 L 05/06/23 17:34 Pulse Oximetry 93 05/06/23 17:34 Oxygen Delivery Room Air 05/06/23 17:34 Temperature 98 F 05/06/23 17:34 Pulse Rate 78 05/06/23 23:15 Respiratory Rate 21 H 05/06/23 23:15 Blood Pressure 120/69 05/06/23 23:13 Pulse Oximetry 94 05/06/23 23:15 Oxygen Delivery Room Air 05/06/23 17:34 Medical Decision Making MDM Narrative Medical decision making narrative: 63-year-old female presenting with hemoptysis after biopsy of lung done 2 days ago, vital stable, on exam she is wheezing extensively and dyspneic, I did start breathing treatments and ordered CT chest. Labs within acceptable limits, chest x-ray on my independent interpretation showing hyperinflated lungs with a very small pneumo on left, this is stable from prior xray [address] chest showing the nodule suspicious for lung cancer, small left hydropneumothorax, and small opaciti
--- NOTE | 2023-05-07 | PC.NURSE ---
pt discharged with education given no RX. iv was removed with catheter intact
== END 2023-05-07 00:02 | disposition home or self-care (01) ==
PROVIDERS: Emergency Medicine; Emergency Provider Emergency Medicine; PCP Family Medicine
DX: J44.0 Chronic obstructive pulmonary disease with (acute) lower respiratory infection (principal); J20.9 Acute bronchitis, unspecified; R04.2 Hemoptysis
CPT/HCPCS: 36415; 71046; 71260; 80053; 82948; 85025; 85610; 85730; 94640; 99284; J7512; Q9967

== ENCOUNTER 2023-07-05 08:23 | Outpatient (CLI) | payer MEDICARE, MEDICAID, SELFPAY ==
--- NOTE | 2023-07-05 | ECHO_ITS ---
Patient Info Name: Shelby Ribera Age: 63 years : 1960 Gender: Female Ht: 65 in Wt: 100 lbs BSA: 1.43 m2 HR: 60 bpm BP: 104 / 70 mmHg Heart Rhythm: Sinus Rhythm Technical Quality: Poor Exam Date: 07/05/2023 9:09 AM Exam Location: [facility] Patient Status: Outpatient Admit Date: 07/05/2023 Staff Ordering Physician: Annalee Hammond APRN Sleep Tech: Soraya Leavitt RDCS Attending Provider: Annalee Hammond APRN Referring Physician: Luann BROWN; Exam Type: CA echo doppler color flow Study Info Indications I31.3 - Pericardial effusion (noninflammatory) Complete two-dimensional, color flow and Doppler transthoracic echocardiogram is performed. Reason for Poor Study: poor echocardiographic windows Summary 1. Complete two-dimensional, color flow and Doppler transthoracic echocardiogram is performed. 2. Essentially unremarkable 2D/Doppler echocardiogram. 3. Exam ordered to investigate pericardial effusion, none was seen. Left Ventricle Left ventricular chamber dimension is normal. Left ventricular systolic function is normal, estimated at 55-60%. The left ventricular diastolic function is normal. Right Ventricle Right ventricular chamber dimension is normal. Left Atria Left atrial chamber dimension is normal. Right Atria Right atrial chamber dimension is normal. Aortic Valve The aortic valve is normal. Pulmonic Valve The pulmonic valve is normal. Mitral Valve The mitral valve has normal leaflets. Tricuspid Valve The tricuspid valve leaflets are normal. Pericardium/Pleural The pericardium appears normal. There is no pericardial effusion. Aorta The aortic root size at the sinus of Valsalva is normal. Left Ventricular Outflow Tract Name Value Normal LVOT 2D LVOT Diameter 1.9 cm LVOT Doppler LVOT Peak Gradient 5 mmHg LVOT Mean Gradient 3 mmHg LVOT VTI 29 cm LVOT VTI/AV VTI Ratio 0.8 LVOT Stroke Volume 81 ml LVOT CO 4.4 l/min LVOT CI 3.1 l/min/m2 Pulmonic Valve Name Value Normal RVOT Doppler RVOT Peak Gradient 1 mmHg PV Doppler PV Peak Gradient 2 mmHg Mitral Valve Name Value Normal MV Doppler MV Decel Mckinley 389 cm/s2 MV PHT 63 ms MV Area (PHT) 3.5 cm2 4.0-5.0 MV Diastolic Function
== END 2023-07-05 08:24 | disposition home or self-care (01) ==
LOC: ANHCARD 08:25
PROVIDERS: PCP Family Medicine; Visit Provider Nurse Practitioner Family
DX: I31.39 Other pericardial effusion (noninflammatory) (principal)
CPT/HCPCS: 93306

== ENCOUNTER 2023-07-24 12:20 | Outpatient (CLI) | payer MEDICARE, MEDICAID, SELFPAY ==
--- NOTE | ~2023-07-24 | CT_ITS ---
EXAMINATION:CT diagnostic chest wo con DATE: 07/24/2023 12:34 INDICATION: Left upper lobe pulmonary nodule. TECHNIQUE: Computed tomography (CT) of the chest was performed without intravenous contrast. Automate d exposure control and iterative reconstruction technique were employed. The dose-length product (DLP ) was 138.18 mGy-cm. COMPARISON: Chest CT 05/06/2023, 04/06/23, 09/30/22 FINDINGS: There is severe emphysema. There is mild atelectasis bilaterally. There is a 12 mm nodule w ith punctate central calcification in left lung upper lobe. There is a 4 mm nodule in right upper lob e, likely benign. There is a 3 mm nodule left upper lobe, likely benign. No pleural effusion. The hea rt size is normal. There is a trace pericardial effusion. There is severe cervical spondylosis and mi ld thoracic spondylosis. There is a chronic compression fracture of T9. IMPRESSION: 1. 12 mm nodule in left lung upper, stable from 04/06/23. Biopsy on 05/04/2023 demonstrated necrotizing granuloma. 2. Severe emphysema. Reviewed, dictated and finalized at location E. IMPRESSION: 1. 12 mm nodule in left lung upper, stable from 04/06/23. Biopsy on 05/04/2023 de monstrated necrotizing granuloma. 2. Severe emphysema.
== END 2023-07-24 12:21 | disposition home or self-care (01) ==
LOC: ANHIMG 12:21
PROVIDERS: PCP Family Medicine; Visit Provider Internal Medicine Pulmonary Disease
DX: R91.1 Solitary pulmonary nodule (principal); J43.9 Emphysema, unspecified
CPT/HCPCS: 71250